=== PATIENT | female | born 1955 | race Caucasian/White ===

== ENCOUNTER 2022-04-23 09:45 | Day surgery (SDC) | payer MEDICARE, SELFPAY ==
--- NOTE | 2022-04-23 10:20 | HO.ANESPROP2 ---
HPI - Anesthesia Eval Consult details Narrative: 66 yo female for colonoscopy [facility] Past Medical History Medical History Colon polyp SVT (supraventricular tachycardia) Uterine polyp Family History Family history of problems with anesthesia: No Surgical History Surgical History (Updated 04/23/22 @ 10:33 by Cecy Stapleton MD) H/O colonoscopy History of Problems with Anesthesia: No Social History Social History Advance Directives: No Advance Directives Information Provided: Yes Meds Allergies Allergy/AdvReac Type Severity Reaction Status Date / Time No Known Allergies Allergy Verified 04/22/22 13:04 Active Medications: Current Medications Lactated Ringer's (Lr) 1,000 mls @ 50 mls/hr IVCONT .Q20H JULIO Home Medications Medication Instructions Recorded Confirmed Last Taken Type Fish Oil 04/22/22 Unknown History Viactiv 04/22/22 Unknown History Vitamin D (with calcium) 04/22/22 Unknown History biotin 04/22/22 Unknown History garlic 04/22/22 04/22/22 Unknown History magnesium 04/22/22 Unknown History Exam Exam Date and Time: April 23, 2022 1020 Height,Weight and Vital Signs: Height 5 ft 3 in Weight 50.349 kg Vital Signs Temp Pulse Resp BP Pulse Ox O2 Del Method 04/23/22 10:33 97.4 F 91 16 172/55 H 99 Room Air Airway Mallampati Class: II TM Dist: >3cm Neck ROM: Full Loose/Missing/Broken Teeth: Yes (Missing 1 tooth top, 1 bottom back left) Heart: RRR. ?parasternal heave Lungs: CTAB Other: H/o SVT. Patient states knows how to control without medications. States has had echo in the past. Reportedly normal. Assessment and Plan Assessment Anesthesia Assessment: Anesthesia Plan Discussed and Chart Reviewed Final Anesthetic Review Family History of Problems with Anesthesia: No History of Problems with Anesthesia: No NPO: Yes ASA Class: II Final Preanesthetic Review: No Changes in Pt Med Stat, Meds/Allgs Chart Reviewed, Consent Obtained/Reviewed and Anes Risks/Benef Reviewed Patient Risk: Intermediate Procedure Risk: Low Assessment/Block/Sedation in SS: Assess/Block/Sedation-SS Anesthetic Plan Anesthetic Plan: MAC: Disposition: Standard PACU
[2022-04-23 10:30] VITALS: BMI 19.6
[2022-04-23 10:33] VITALS: BP 172/55; PULSE 91; RESP 16; TEMP 36.3; O2SAT 99
[2022-04-23] MEDS: Sodium Phosphate,Mono-Dibasic 133 ML ENEMA PR (10:50)
[2022-04-23] MEDS: Lactated Ringers 1,000 ML 50 ML IVCONT (10:51)
--- NOTE | 2022-04-23 11:10 | MHC.SHP ---
Pre-Procedural Eval Section A Date of Service: 04/23/22 The patient is an INPATIENT: No Changes since office visit: No Cold of Flu in the past 2 weeks, No New Medical Problems, No Changes in Medication and No Patient answered all questions The History & Physical has been completed within 30 days and I have reviewed it.: Yes Section B Chief Complaint: Encounter for screening for malignant neoplasm of Allergies: Allergies Allergy/AdvReac Type Severity Reaction Status Date / Time No Known Allergies Allergy Verified 04/22/22 13:04 Plan I have reviewed the history and physical and performed a pertinent physical examination on my patient. No changes have occurred unless specified. Time Spent With Patient Time: Total time managing care of this patient today ____ minutes.
--- NOTE | 2022-04-23 11:16 | PC.NURSE ---
1050am patient gave enmea to self. clear output.
--- NOTE | 2022-04-23 11:46 | PM.OP ---
Brief Operative Note Date of Service: 04/23/22 Pre-op diagnosis: screening Post-op diagnosis: same Procedure: colonoscopy Surgeon: Jeramie Rodriguez Anesthesia: MAC Was an Pipe Line Maintenance Supervisor used for this Procedure?: No Estimated blood loss (mL): 5 Pathology: other Condition: stable Disposition: PACU
[2022-04-23 11:47] VITALS: BP 84/39; PULSE 69; RESP 16; TEMP 36.8; O2SAT 98
[2022-04-23 12:02] VITALS: BP 99/68; PULSE 67; RESP 16; TEMP 36.8; O2SAT 99
--- NOTE | 2022-04-23 22:03 | OP_ITS ---
SURGEON: Jeramie Rodriguez MD INDICATIONS: Colon cancer screening and prior history of adenomatous colon polyps. PREOPERATIVE DIAGNOSIS: POSTOPERATIVE DIAGNOSIS: PROCEDURE PERFORMED: ESTIMATED BLOOD LOSS: COMPLICATIONS: ANESTHESIA: ASSISTANTS: SPECIMENS: PROCEDURE: Colonoscopy to the cecum with snare polypectomy. MEDICATIONS: Monitored anesthesia care. PROCEDURE DESCRIPTION: History and physical performed. The risks and benefits of the procedure were explained to the patient and informed consent was obtained. The procedure was performed on 04/23/2022. The patient was placed in the left lateral decubitus position. A digital rectal exam was performed and was found to be normal. The Olympus pediatric video colonoscope was introduced into the rectum and advanced to the cecum without difficulty. The cecum was identified by transillumination, palpation, and identification of the ileocecal valve. Examination was performed. The scope was removed. She tolerated the procedure well and was taken to recovery in stable condition. FINDINGS: The terminal ileum was not examined. The visualized colonic mucosa was within normal limits without evidence of masses or ulcers. There was some liquid stool coating the mucosa, mainly in the right colon and transverse colon. This was washed and suctioned. A single polyp measuring 6 mm was removed with a cold snare in the cecum. No other polyps were identified. Retroflexed examination was normal. There was mild sigmoid diverticulosis. IMPRESSION: Colon polyp. RECOMMENDATION: Follow up the biopsy results. MD BRITTON Arvizu/GEREMIAS / [id number]
== END 2022-04-23 12:38 | disposition home or self-care (01) ==
PROVIDERS: PCP Family Medicine; Visit Provider Internal Medicine Gastroenterology
PROC: 0DJD8ZZ Inspection of Lower Intestinal Tract, Via Natural or Artificial Opening Endoscopic (ICD-10-PCS; CPT 45378; principal; 2022-04-23 11:00)
DX: Z12.11 Encounter for screening for malignant neoplasm of colon (principal); Z86.010 Personal history of colon polyps; D12.0 Benign neoplasm of cecum; K57.30 Diverticulosis of large intestine without perforation or abscess without bleeding; I47.1 Supraventricular tachycardia; Z79.899 Other long term (current) drug therapy
CPT/HCPCS: 45385; 88305